=== PATIENT | female | born 1970 | race Caucasian/White ===

== ENCOUNTER 2017-06-30 14:44 | Emergency (ER) | payer OTHER ==
[2017-06-30] MEDS: ONDANSETRON 4 MG INJ IV (17:03)
[2017-06-30] MEDS: HYDROmorphONE 1 MG/ML SYG IV (17:03)
[2017-06-30 17:07] LABS: ADD MAN DIFF? NO
[2017-06-30 17:08] LABS: BASOPHIL # 0.1 10^3/ul (0.0-0.1); BASOPHILS % 0.7 % (0.0-2.0); EOSINOPHILS # 0.2 10^3/ul (0.0-0.5); EOSINOPHILS % 3.2 % (0.0-7.0); LYMPHOCYTES # 2.1 10^3/ul (0.8-2.9); LYMPHOCYTES % 31.2 % (15.0-51.0); MEAN CORPUSCULAR HEMOGLOBIN 23.6 pg (29.0-33.0); MEAN CORPUSCULAR HGB CONC 32.4 g/dl (32.0-37.0); MEAN CORPUSCULAR VOLUME 72.7 fl (82.0-101.0); MEAN PLATELET VOLUME 9.6 fl (7.4-10.4); MONOCYTE # 0.6 10^3/ul (0.3-0.9); MONOCYTES % 8.3 % (0.0-11.0); NEUTROPHIL # 3.9 10^3/ul (1.6-7.5); NEUTROPHILS % 56.2 % (39.0-77.0); PLATELET COUNT 480 10^3/UL (140-415); RED BLOOD COUNT 5.09 10^6/ul (4.20-5.40); RED CELL DISTRIBUTION WIDTH 13.6 % (11.5-14.5)
[2017-06-30 17:08] LABS: WHITE BLOOD COUNT 6.9 10^3/ul (4.8-10.8)
[2017-06-30 17:19] LABS: ADD UMIC NO; UR ASCORBIC ACID NEGATIVE (NEGATIVE); UR BACTERIA FEW /HPF (NONE SEEN); UR BILIRUBIN (Dip) NEGATIVE (NEGATIVE); UR BLOOD (Dip) NEGATIVE (NEGATIVE); UR CLARITY SLIGHTLY CLOUDY (CLEAR); UR COLOR STRAW (YELLOW); UR GLUCOSE (Dip) NEGATIVE (NEGATIVE); UR KETONES (Dip) NEGATIVE (NEGATIVE); UR LEUKOCYTE ESTERASE (Dip) NEGATIVE Leu/ul (NEGATIVE); UR NITRITE (Dip) NEGATIVE (NEGATIVE); UR RBC 1 /HPF (0-5); UR SPECIFIC GRAVITY (Dip) 1.006 (1.003-1.030); UR SQUAMOUS EPITHELIAL CELL FEW /HPF (FEW); UR TOTAL PROTEIN (Dip) NEGATIVE (NEGATIVE); UR UROBILINOGEN (Dip) NEGATIVE (NEGATIVE); UR WBC 2 /HPF (0-5)
[2017-06-30 17:27] LABS: ALANINE AMINOTRANSFERASE 27 IU/L (13-69); ALBUMIN 4.8 g/dl (3.3-4.9); ALKALINE PHOSPHATASE 88 IU/L (42-121); ANION GAP 16 (8-16); ASPARTATE AMINO TRANSFERASE 23 IU/L (15-46); BILIRUBIN,INDIRECT 0.4 mg/dl (0-1.1); BILIRUBIN,TOTAL 0.4 mg/dl (0.2-1.3); BLOOD UREA NITROGEN 11 mg/dl (7-20); CALCIUM 9.5 mg/dl (8.4-10.2); CARBON DIOXIDE 26 mmol/L (21-31); CHLORIDE 105 mmol/L (97-110); GLUCOSE 108 mg/dl (70-220); POTASSIUM 3.6 mmol/L (3.5-5.1); SODIUM 143 mmol/L (135-144); TOTAL PROTEIN 8.8 g/dl (6.1-8.1)
[2017-06-30 17:49] LABS: TROPONIN-I < 0.012 ng/ml (0.00-0.12)
[2017-06-30] MEDS ORDERED: ONDANSETRON (ODT) 4 MG TAB ODT (18:36)
== END 2017-06-30 18:35 | disposition left against medical advice (07) ==
LOC: FTE 14:44
DX: R10.32 Left lower quadrant pain (principal); R00.2 Palpitations
CPT/HCPCS: 36415; 74176; 80053; 81001; 81003; 84484; 85025; 93005; 96374; 96375; 99285-25

== ENCOUNTER 2017-12-29 10:17 | Day surgery (SDC) | payer OTHER ==
[~2017-12-29 10:17] MED LIST: BUPIVACAINE 0.25%/EPI (MDV) 50 ML VIAL INJ; BUPIVACAINE 0.5%/EPI (SDV) 30 ML INJ; CEFAZOLIN 1 GM INJ; CEFAZOLIN 2 GM/50 ML (PMX) 50 ML IVPB; DEXAMETHASONE 4 MG/ML 1 ML INJ; EPINEPHrine 1 MG INJ; ONDANSETRON 4 MG INJ; ROCURONIUM 50 MG INJ; SOD CHLORIDE 0.9% 1,000 ML IV
[2017-12-29] MEDS ORDERED: CEFAZOLIN 2 GM/50 ML (PMX) 50 ML IVPB (12:00)
[2017-12-29 12:49] LABS: ADD MAN DIFF? NO
[2017-12-29 12:54] LABS: WHITE BLOOD COUNT 8.6 10^3/ul (4.8-10.8)
[2017-12-29 12:54] LABS: BASOPHIL # 0.1 10^3/ul (0.0-0.1); BASOPHILS % 0.6 % (0.0-2.0); EOSINOPHILS % 0.5 % (0.0-7.0); HEMATOCRIT 34.9 % (37.0-47.0); HEMOGLOBIN 10.8 g/dl (12.0-16.0); LYMPHOCYTES # 2.1 10^3/ul (0.8-2.9); MEAN CORPUSCULAR HEMOGLOBIN 21.6 pg (29.0-33.0); MEAN CORPUSCULAR HGB CONC 30.9 g/dl (32.0-37.0); MEAN CORPUSCULAR VOLUME 69.8 fl (82.0-101.0); MEAN PLATELET VOLUME 9.7 fl (7.4-10.4); MONOCYTE # 0.6 10^3/ul (0.3-0.9); MONOCYTES % 6.9 % (0.0-11.0); NEUTROPHIL # 5.8 10^3/ul (1.6-7.5); NEUTROPHILS % 67.2 % (39.0-77.0); PLATELET COUNT 500 10^3/UL (140-415); RED CELL DISTRIBUTION WIDTH 15.1 % (11.5-14.5)
[2017-12-29] MEDS: SOD CHLORIDE 0.9% 1,000 ML IV (12:54)
[2017-12-29] MEDS ORDERED: FENTAnyl 50 MCG/ML VIAL (13:11)
[2017-12-29] MEDS: BUPIVACAINE 0.25% (MPF) 30 ML INJ (13:11)
[2017-12-29] MEDS ORDERED: MIDAZOLAM 1 MG/ML 2 ML INJ (13:12)
[2017-12-29] MEDS ORDERED: METOCLOPRAMIDE 10 MG INJ (13:13)
[2017-12-29] MEDS ORDERED: ROCURONIUM 50 MG INJ (13:14)
[2017-12-29] MEDS ORDERED: PROPOFOL 20 ML (13:14)
[2017-12-29] MEDS ORDERED: LIDOCAINE 2% (SDV) 5 ML INJ (13:14)
[2017-12-29] MEDS ORDERED: SUCCINYLCHOLINE CHLORIDE 100 MG/5 ML SYG IV (13:14)
[2017-12-29 13:15] LABS: ALANINE AMINOTRANSFERASE 14 IU/L (13-69); ALBUMIN 4.6 g/dl (3.3-4.9); ALBUMIN/GLOBULIN RATIO 1.17; ALKALINE PHOSPHATASE 82 IU/L (42-121); ANION GAP 14 (8-16); ASPARTATE AMINO TRANSFERASE 21 IU/L (15-46); BILIRUBIN,INDIRECT 0.6 mg/dl (0-1.1); BILIRUBIN,TOTAL 0.6 mg/dl (0.2-1.3); BLOOD UREA NITROGEN 10 mg/dl (7-20); CALCIUM 9.3 mg/dl (8.4-10.2); CARBON DIOXIDE 22 mmol/L (21-31); CHLORIDE 109 mmol/L (97-110); CREATININE 0.56 mg/dl (0.44-1.00); GLUCOSE 100 mg/dl (70-220); POTASSIUM 3.8 mmol/L (3.5-5.1); SODIUM 141 mmol/L (135-144); TOTAL PROTEIN 8.5 g/dl (6.1-8.1)
[2017-12-29] MEDS ORDERED: KETOROLAC 30 MG INJ (13:20)
[2017-12-29 13:28] LABS: PROTIME 13.3 Sec (11.9-14.9)
[2017-12-29 13:29] LABS: PARTIAL THROMBOPLASTIN TIME 32.1 Sec (25.0-35.0)
[2017-12-29] MEDS ORDERED: SUGAMMADEX SODIUM 200 MG/2 ML VIAL IV (14:06)
[2017-12-29] MEDS ORDERED: METOPROLOL 5 MG INJ (14:19)
[2017-12-29] MEDS ORDERED: ROPIVACAINE 0.5 % 30 ML VIAL (14:24)
[2017-12-29] MEDS ORDERED: FENTAnyl 50 MCG/ML VIAL IV ×3 (14:30→16:00)
[2017-12-29] MEDS ORDERED: HYDROCODONE/APAP (5/325) TAB PO (15:00)
[2017-12-29] MEDS ORDERED: LABETALOL HCL 20MG INJ (15:19)
[2017-12-29] MEDS: HYDROmorphONE 1 MG/5 ML IV SYRINGE IV ×3 (15:22→15:43)
[2017-12-29] MEDS: LABETALOL HCL 20MG INJ IV (15:29)
[2017-12-29] MEDS ORDERED: ONDANSETRON 4 MG INJ IV ×2 (15:30→16:00)
[2017-12-29] MEDS ORDERED: MEPERIDINE 25 MG INJ IV ×2 (15:30→16:00)
[2017-12-29] MEDS ORDERED: IPRATROPIUM (NEB) 0.5 MG/2.5 ML AMP HHN (15:30)
[2017-12-29] MEDS ORDERED: hydrALAzine 20 MG INJ IV ×2 (15:30→16:00)
[2017-12-29] MEDS ORDERED: KETOROLAC 30 MG INJ IV ×2 (15:30→16:00)
[2017-12-29] MEDS ORDERED: DIPHENHYDRAMINE 50 MG INJ IV ×2 (15:30→16:00)
[2017-12-29] MEDS ORDERED: LABETALOL HCL 20MG INJ IV (16:00)
[2017-12-29] MEDS ORDERED: HYDROmorphONE 1 MG/5 ML IV SYRINGE IV ×2 (16:00)
== END 2017-12-29 16:44 | disposition home or self-care (01) ==
LOC: SDS 10:17
DX: K80.10 Calculus of gallbladder with chronic cholecystitis without obstruction (principal)
CPT/HCPCS: 47562; 80053; 84703; 85025; 85610; 85730; 88304